=== PATIENT | female | born 1985 | race Caucasian/White ===

== ENCOUNTER → 2017-11-05 | Emergency (ER) | payer OTHER ==
[~2017-11-05] VITALS: Ht 154.9 cm; Wt 65.8 kg
[~2017-11-05] MED LIST: CEFADROXIL500 MG PO; KETO10TA2 PO
== END | disposition home or self-care (01) ==
LOC: ER 21:20
DX: L02.31 Cutaneous abscess of buttock (principal)

== ENCOUNTER 2018-06-30 16:02 | Emergency (ER) | payer OTHER ==
[~2018-06-30] VITALS: Ht 162.6 cm; Wt 63.5 kg
== END 2018-06-30 21:20 | disposition home or self-care (01) ==
LOC: ER 16:02
DX: R10.2 Pelvic and perineal pain (principal)